=== PATIENT | male | born 1950 | race Caucasian/White ===

== ENCOUNTER 2020-11-13 09:33 | Day surgery (SDC) | payer MEDICARE, BC ==
[2020-11-09 10:33] LABS: BASOPHILS % (AUTO) 0.5 % (0-1); EOSINOPHILS # (AUTO) 0.4 X10'3 (0-0.9); LYMPHOCYTES # (AUTO) 2.1 X10'3 (1.1-4.8); LYMPHOCYTES % (AUTO) 22.7 % (21-51); MEAN CORPUSCULAR HEMOGLOBIN 30.9 PG (27.0-31.0); MEAN CORPUSCULAR HGB CONC 33.8 g/dL (33.0-36.5); MEAN CORPUSCULAR VOLUME 91.4 FL (78-98); MEAN PLATELET VOLUME 8.5 FL (7.4-10.4); MONOCYTES # (AUTO) 0.6 X10'3 (0-0.9); MONOCYTES % (AUTO) 6.8 % (2-12); NEUTROPHILS # (AUTO) 6.1 X10'3 (1.8-7.7); PRE OP HEMOGLOBIN 15.5 g/dL (14.0-17.9); PRE OP PLATELET COUNT 233 X10'3 (140-440); RED BLOOD COUNT 5.03 X10'6 (4.70-6.10); RED CELL DISTRIBUTION WIDTH 13.1 % (11.5-14.5)
[2020-11-09 10:41] LABS: PRE OP INR 1.1 INR; PRE OP PROTIME 10.9 SECONDS (9.0-12.0)
[2020-11-09 10:43] LABS: ALBUMIN 3.8 G/DL (3.4-5.0); ALBUMIN/GLOBULIN RATIO 1.2 (1.1-1.5); ALKALINE PHOSPHATASE 71 IU/L (46-116); BLOOD UREA NITROGEN 17 MG/DL (7-18); BUN/CREATININE RATIO 19.5 (5.4-32.0); CHLORIDE 105 MMOL/L (99-107); CREATININE 0.87 MG/DL (0.60-1.10); PRE OP ALT 39 U/L (30-65); PRE OP ANION GAP 9 (8-16); PRE OP AST 27 U/L (10-37); PRE OP BILIRUB, TOTAL 0.7 MG/DL (0.0-1.0); PRE OP GLUCOSE 106 MG/DL (70-104); PRE OP POTASSIUM 4.3 MMOL/L (3.4-5.1); PRE OP SODIUM 140 MMOL/L (135-145); TOTAL CARBON DIOXIDE 25.9 MMOL/L (24-32); TOTAL PROTEIN 7.1 G/DL (6.4-8.2); eGFR 87 ML/MIN
[2020-11-13] VITALS (9 sets, daily range): BP systolic 132–160; BP diastolic 72–88
[~2020-11-13] VITALS: Ht 175.3 cm; Wt 107.0 kg
[~2020-11-13 09:33] MED LIST: ATEN50TA PO; ATOR40TA PO; DOCUMENT DATE & TIME OF BETA-BLOCKER PO ONE; LORA10TA7 PO; MAGN400C PO; MULT-1085 PO; OMEG-79 PO; diazepam 5mg tablet PO PRN; famotidine 20mg tablet PO ONE; ringers solution, lacted 1,000 ML IV SCH
[2020-11-13] MEDS: oxymetazoline 15 ML nasal spray NS PRN ×2 (10:20→13:25)
[2020-11-13] MEDS ORDERED: morphine 4 MG/ML inj SYRINge IV PRN (11:00)
[2020-11-13] MEDS ORDERED: ringers solution, lacted 1,000 ML IV SCH (11:00)
[2020-11-13] MEDS ORDERED: fentaNYL/PF 50MCG/1 ML 2ML syringe IV PRN ×2 (11:00)
[2020-11-13] MEDS ORDERED: morphine 2 MG/ML inj. syringe IV PRN (11:00)
[2020-11-13] MEDS ORDERED: labetalol 20mg/4ml (5mg/ml) syringe IV PRN (11:00)
[2020-11-13] MEDS ORDERED: ondansetron/PF 4mg/2ml inj IV PRN (11:00)
[2020-11-13] MEDS ORDERED: hydrALAZINE 20mg/ml inj. IV PRN (11:00)
[2020-11-13] MEDS ORDERED: mupirocin 2% ointment 22GM ONE (12:17)
[2020-11-13] MEDS ORDERED: LIDOcaine 1% W/epiNEPHrine 1:100,000 20ml vial ONE (12:17)
[2020-11-13] MEDS ORDERED: cocaine 4% topical solution 4ml bottle ONE (12:17)
[2020-11-13] MEDS ORDERED: oxymetazoline 15 ML nasal spray NS ONE (12:18)
[2020-11-13] MEDS ORDERED: cefTAZidime 1gm inj ONE (12:18)
[2020-11-13] MEDS ORDERED: fentaNYL/PF 50MCG/1 ML 2ML syringe ONE ×2 (12:44→13:47)
[2020-11-13] MEDS ORDERED: propofol inj 20 ML IV ONE (12:45)
[2020-11-13] MEDS ORDERED: ondansetron/PF 4mg/2ml inj ONE (12:45)
[2020-11-13] MEDS ORDERED: sevoflurane 250ml liquid IH ONE (12:45)
[2020-11-13] MEDS ORDERED: LIDOcaine 2% (20mg/ml) 5ml vial ONE (12:45)
[2020-11-13] MEDS ORDERED: midazolam 1 mg/ML 2ml injection ONE (12:45)
[2020-11-13] MEDS ORDERED: hydrALAZINE 20mg/ml inj. IV ONE (12:45)
[2020-11-13] MEDS ORDERED: dexamethasone sod phosphate 4mg/ml inj. ONE (13:00)
--- NOTE | 2020-11-13 14:10 | NUR ---
RECEIVED PT FROM OR VIA [facility] ACCOMPANIED BY ANESTHESIOLOGIST, DR. HELLER, REPORT GIVEN, PT WAKING UP, VSS, PIV 20G -RIGHT HAND, SCDS ON, COTTONOIDS TO BILAT NARES INTACT-NO DRAINAGE NOTED, DENIES PAIN.
[2020-11-13] MEDS ORDERED: salt irrigation nasal spray 45 ML SPRAY NS PRN (14:50)
--- NOTE | 2020-11-13 15:30 | NUR ---
PT UP ABLE TO VOID, GETTING DRESSED, STILL DENIES PAIN, VSS-AFTER DOSE OF TRANDATE BP LOWER, COTTONOIDS REMOVED AFTER 30"-PT TOLERATED WELL, MUSTACHE DAVIS IN PLACE, PT EDUCATED REGARDING USE OF IRRIGATION AND SALINE SOLUTION-ALL QUESTIONS ANSWERED, TOLERATING ICE WATER, PIV D/CD-NO BLEEDING, PT TAKEN VIA W/C TO CAR WITH ALL BELONGINGS TO -ALL QUESTIONS ANSWERED.
== END 2020-11-13 15:30 | disposition home or self-care (01) ==
LOC: SSTAY O 09:33
PROVIDERS: ATTEND Otolaryngology
DX: J34.2 Deviated nasal septum (principal); J34.3 Hypertrophy of nasal turbinates; E66.9 Obesity, unspecified; Z68.34 Body mass index [BMI] 34.0-34.9, adult; G47.30 Sleep apnea, unspecified; I10 Essential (primary) hypertension; F17.290 Nicotine dependence, other tobacco product, uncomplicated; Z79.899 Other long term (current) drug therapy; Z79.01 Long term (current) use of anticoagulants; Z72.89 Other problems related to lifestyle; Z98.890 Other specified postprocedural states
CPT/HCPCS: 30140; 30520; 36415; 80053; 82948; 85025; 85576; 85610; 85730; 93005; A6402; C9250; J0713; J1100; J2001; J2250; J2405; J2704; J3010; J7050; J7120; Z7506; Z7508; Z7512; A4618; A7000; J0360; J3490